=== PATIENT | female | born 1965 | race American Indian/Alaskan Native ===

== ENCOUNTER 2022-06-08 09:32 | Emergency (ER) | payer BC ==
--- NOTE | 2022-06-08 11:17 | Emergency Department Report ---
ED Fall HPI - General Chief Complaint: Extremity Injury, Lower Stated Complaint: GROUND LEVEL FALL/LEFT HOP AND LEG PAIN Time Seen by Provider: 06/08/22 11:17 Source: patient, EMS Mode of arrival: Wheelchair - History of Present Illness Initial Comments: 56 YO SP FALL WHILE AT [employer] SLIP NO DOWN TIME NO LOC AMBULATORY AFTER FALL JUST WANTS CHECKED CO LUMBAR AND LEFT HIP PAIN AMBULATORY TO ER NEUROVASC INTACT MD Complaint: fall -: Sudden Fall From: standing When Fall Occurred: 1-3 hours [employer] Fall Witnessed: yes, by family, yes, by bystander Place Fall Occurred: other Loss of Consciousness: none Prolonged Down Time?: no Symptoms Prior to Fall: none Severity: mild Context: tripped/slipped Associated Symptoms: denies - Related Data Previous Rx's Medication Instructions Recorded Last Taken Type Ibuprofen [Motrin] 800 mg PO Q8HR PRN #30 tablet 06/08/22 Unknown Rx Allergies Allergy/AdvReac Type Severity Reaction Status Date / Time No Known Allergies Allergy Verified 06/08/22 09:59 ED Review of Systems ROS: Stated complaint: GROUND LEVEL FALL/LEFT HOP AND LEG PAIN Other details as noted in HPI Comment: All other systems reviewed and negative ED Past Medical Hx - Past Medical History Previous Medical History?: Yes Hx Hypertension: Yes - Surgical History Past Surgical History?: No - Family History Family history: no significant - Social History Smoking Status: Never Smoker Substance Use Type: None - Medications Home Medications: Home Medications Medication Instructions Recorded Confirmed Last Taken Type Ibuprofen [Motrin] 800 mg PO Q8HR PRN #30 tablet 06/08/22 Unknown Rx ED Physical Exam - General Limitations: No Limitations General appearance: alert, in no apparent distress - Head Head exam: Present: atraumatic, normocephalic - Eye Eye exam: Present: normal appearance - ENT ENT exam: Present: mucous membranes moist - Neck Neck exam: Present: normal inspection - Respiratory Respiratory exam: Present: normal lung sounds bilaterally. Absent: respiratory distress - Cardiovascular Cardiovascular Exam: Present: regular rate, normal rhythm. Absent: systolic murmur, diastolic murmur, rubs, gallop - GI/Abdominal GI/Abdominal exam: Present: soft, normal bowel sounds - Extremities Exam Extremities exam: Present: normal inspection - Back Exam Back exam: Present: normal inspection - Neurological Exam Neurological exam: Present: alert, oriented X3 - Psychiatric Psychiatric exam: Present: normal affect, normal mood - Skin Skin exam: Present: warm, dry, intact, normal color. Absent: rash ED Course Vital Signs 06/08/22 09:57 Temperature 98.6 F Pulse Rate 99 H Respiratory 15 Rate Blood Pressure 140/100 [Left] O2 Sat by Pulse 100 Oximetry ED Medical Decision Making - Radiology Data Radiology results: report reviewed, image reviewed NAP - Medical Decision Making XRAY NAP MEDICATED WITH MOTRIN AMBULATORY NEURO INTACT DC HOME WITH DC PLAN OF CARE INCLUDING DIET, MEDS, ACTIVITY AND FOLLOW UP PT VERBALIZES UNDERSTANDING OF PLAN OF CARE Vital Signs 06/08/22 09:57 Temperature 98.6 F Pulse Rate 99 H Respiratory 15 Rate Blood Pressure 140/100 [Left] O2 Sat by Pulse 100 Oximetry - Differential Diagnosis RO FX Critical care attestation.: If time is entered above; I have spent that time in minutes in the direct care of this critically ill patient, excluding procedure time. ED Disposition Clinical Impression: Fall, Contusion Disposition: 01 HOME / SELF CARE / HOMELESS Is pt being admited?: No Does the pt Need Aspirin: No Condition: Stable Instructions: Contusion Additional Instructions: MED ORDERED FOR PAIN ICE TO SORE AREAS TODAY TOMORROW WARM BATHS FOLLOW UP WITH YOUR PCP OR ORTHO MD REFERRAL BELOW Prescriptions: Ibuprofen [Motrin] 800 mg PO Q8HR PRN #30 tablet PRN Reason: Pain, Moderate (4-6) Referrals: RADHA LAMBERT MD [Staff Physician] - 3-5 Days Forms: Work/School Release Form(ED) Time of Disposition: 12:48
[2022-06-08] MEDS ORDERED: IBUPROFEN 800 MG TAB PO ONE (11:19)
--- NOTE | 2022-06-08 12:15 | XRay Report ---
XR hip 2-3V LT INDICATION / CLINICAL INFORMATION: PAIN SP FALL. COMPARISON: None available. FINDINGS: BONES/JOINT(S): No acute fracture or subluxation. Normal bone mineralization. SOFT TISSUES: No significant abnormality. ADDITIONAL FINDINGS: None. IMPRESSION: 1. No acute findings. Signer Name: Miles Vora MD Signed: 06/08/2022 12:10 PM Workstation Name: [employer]
--- NOTE | 2022-06-08 12:16 | XRay Report ---
XR spine lumbosacral 2-3V INDICATION / CLINICAL INFORMATION: PAIN SP FALL. COMPARISON: None available. FINDINGS: BONES/JOINT(S): No acute fracture or subluxation. Mild generalized spondylosis. No focal bone erosion s or focal osteopenia to suggest inflammatory arthropathy. SOFT TISSUES: No significant abnormality. ADDITIONAL FINDINGS: None. Signer Name: Miles Vora MD Signed: 06/08/2022 12:12 PM Workstation Name: [email or web address]
[2022-06-08 13:09] VITALS: BP 136/86
== END 2022-06-08 13:00 | disposition home or self-care (01) ==
LOC: ED 09:32
DX: S70.02XA Contusion of left hip, initial encounter (principal); S90.02XA Contusion of left ankle, initial encounter; I10 Essential (primary) hypertension; Z79.899 Other long term (current) drug therapy; W18.39XA Other fall on same level, initial encounter; Y93.89 Activity, other specified; Y92.89 Other specified places as the place of occurrence of the external cause; Y99.8 Other external cause status
CPT/HCPCS: 72100; 99283